=== PATIENT | male | born 1970 ===

== ENCOUNTER 2022-08-19 16:42 | Emergency (ER) | payer OTHER, MEDICAID, SELFPAY ==
[2022-08-19] VITALS (7 sets, daily range): BP systolic 138–144; BP diastolic 82–94; PULSE 56–76; RESP 14–24; TEMP 36.6; O2SAT 96–99; BMI 28.6
--- NOTE | 2022-08-19 17:10 | PC.NURSE ---
PIV unsuccessful x2
[2022-08-19] MEDS: ONDANSETRON 4 MG/2 ML INJ IV (17:45)
[2022-08-19] MEDS: MORPHINE 4 MG/ML INJ IV (17:45)
[2022-08-19 17:51] LABS: Add Manual Diff / Slide Review NO; Basophils Absolute Auto 100 /uL (0-100); Basophils Percent Auto 1.3 % (0-2); Eosinophils Absolute Auto 200 /uL (0-450); Eosinophils Percent Auto 2.1 % (2-4); Hematocrit 44.5 % (41-53); Hemoglobin 14.9 g/dL (13.5-17.5); Lymphocytes Absolute Auto 2800 /uL (1100-4500); Lymphocytes Percent Auto 24.7 % (25-40); Mean Corpuscular HGB Conc 33.4 % (30-36); Mean Corpuscular Hemoglobin 31.2 PG (26-34); Mean Corpuscular Volume 93.4 fL (80-100); Monocytes Absolute Auto 600 /uL (0-900); Monocytes Percent Auto 4.9 % (3-14); Neutrophils Absolute Auto 7700 /uL (1500-7000); Platelet Count 206 X10^3/uL (150-400); Red Blood Cell Count 4.77 X10^6/uL (4.5-5.9); Red Cell Distribution Width 14.3 % (11.6-14.8); White Blood Cell Count 11.5 X10^3/uL (4.5-11.0)
[2022-08-19 18:01] LABS: Alanine Aminotransferase 102 IU/L (<50); Albumin 4.9 g/dL (3.5-5.0); Albumin Globulin Ratio 1.1 (1.0-2.8); Alkaline Phosphatase 119 U/L (38-126); Aspartate Aminotransferase 87 IU/L (17-59); BUN Creatinine Ratio 14.2 (6-22); Bilirubin Total 0.9 mg/dL (0.2-1.3); Blood Urea Nitrogen 18 mg/dL (9-20); Calcium 9.6 mg/dL (8.4-10.2); Carbon Dioxide 31 mmol/L (22-32); Chloride 101 mmol/L (98-107); Estimated Glomerular Filt Rate > 60 mL/min (>60); Globulin 4.3 g/dL (1.7-4.1); Glucose 106 mg/dL (70-100); HEMOLYSIS < 15 (0-50); Lipase 262 U/L (23-300); Potassium 4.2 mmol/L (3.4-5.1); Sodium 139 mmol/L (137-145); Total Protein 9.2 g/dL (6.3-8.2)
--- NOTE | 2022-08-19 18:15 | ED.GENADULT ---
HPI - General Adult General Chief complaint: Abdominal Pain Stated complaint: Turned and something popped, Pain Time Seen by Provider: 08/19/22 17:57 Source: patient Mode of arrival: Wheelchair Limitations: no limitations History of Present Illness HPI narrative: Patient a known history of an umbilical hernia. He states he has had some issues with it in the past but is has been able to reduce it on its own. He states he has followed up with General surgery for this however he does not have a specific date for surgical repair. He states that he turned and he felt that something popped. He then had pain in his umbilical region. He felt like there are any was protruding any could not get it to reduce. At the time my evaluation he states the hernia has now PAC in. He states that his pain is greatly improved. His target some minor discomfort no vomiting. No change in bowel habits. Related Data Allergies Allergy/AdvReac Type Severity Reaction Status Date / Time Sulfa (Sulfonamide Allergy Hives Verified 08/19/22 16:54 Antibiotics) Review of Systems Constitutional Constitutional: Reports system reviewed and no additional complaints, except as documented Gastrointestinal Gastrointestinal: Reports system reviewed and no additional complaints, except as documented Genitourinary Genitourinary: Reports system reviewed and no additional complaints, except as documented Integumentary/Breasts Skin/Breast: Reports system reviewed and no additional complaints, except as documented Neurologic Neurologic: Reports system reviewed and no additional complaints, except as documented Patient History Social History Smoking Status: Current every day smoker Smoking Status: Current every day smoker alcohol intake frequency: 0-2 drinks per day Substance Use Type: marijuana Exam Initial Vital Signs Initial Vital Signs: Vital Signs Temperature 97.9 F 08/19/22 16:49 Pulse Rate 76 08/19/22 16:49 Respiratory Rate 22 08/19/22 16:49 Blood Pressure 139/94 H 08/19/22 16:49 Pulse Oximetry 99 08/19/22 16:49 Oxygen Delivery Method Room Air 08/19/22 16:49 HENMT Head: normal to inspection and normocephalic Resp Effort & Inspection: normal respiratory effort Cardio Rate: regular rate GI Inspection: normal to inspection and non-distended Other: Patient does have a deficit arrived his umbilical region but there is no hernia felt. Minimal tenderness to palpation Skin General: no rashes or lesions noted Neuro General: patient alert, patient awake and moves all extremities Course Orders Ordered: Discontinued Medications Morphine Sulfate (Morphine 4 Mg/Ml Inj) 4 mg IV NOW ONE Stop: 08/19/22 17:00 Last Admin: 08/19/22 17:45 Dose: 4 mg Documented By: NEELA Ondansetron HCl (Ondansetron 4 Mg/2 Ml Inj) 4 mg IV NOW PRN PRN Reason: Nausea And Vomiting Last Admin: 08/19/22 17:45 Dose: 4 mg Documented By: NEELA Vital Signs Vital signs: Vital Signs - 8 hr 08/19/22 16:49 Temperature 97.9 F Pulse Rate 76 Respiratory Rate 22 Blood Pressure 139/94 H Pulse Oximetry 99 Oxygen Delivery Method Room Air Medical Decision Making Lab Data Lab results reviewed: Yes I reviewed the patient's lab results. 08/19/22 17:40 08/19/22 17:40 Labs: Lab Results 08/19/22 08/19/22 Range/Units 17:40 17:40 WBC 11.5 H (4.5-11.0) X10^3/uL RBC 4.77 (4.5-5.9) X10^6/uL Hgb 14.9 (13.5-17.5) g/dL Hct 44.5 (41-53) % MCV 93.4 (80-100) fL MCH 31.2 (26-34) PG MCHC 33.4 (30-36) % RDW 14.3 (11.6-14.8) % Plt Count 206 (150-400) X10^3/uL Neut % (Auto) 67.0 (50-75) % Lymph % (Auto) 24.7 L (25-40) % [place] % (Auto) 4.9 (3-14) % Eos % (Auto) 2.1 (2-4) % Baso % (Auto) 1.3 (0-2) % Neut # (Auto) 7700 H (6558-3524) /uL Lymph # (Auto) 2800 (3820-9041) /uL [place] # (Auto) 600 (0-900) /uL Eos # (Auto) 200 (0-450) /uL Baso # (Auto) 100 (0-100) /uL Sodium 139 (137-145) mmol/L Potassium 4.2 (3.4-5.1) mmol/L Chloride 101 (98-107) mmol/L Carbon Dioxide 31 (22-32) mmol/L BUN 18 (9-20) mg/dL Creatinine 1.27 H (0.66-1.25) mg/dL Estimated GFR > 60 (>60) mL/min BUN/Creatinine Ratio 14.2 (6-22) Glucose 106 H (70-100) mg/dL Calcium 9.6 (8.4-10.2) mg/dL Total Bilirubin 0.9 (0.2-1.3) mg/dL AST 87 H (17-59) IU/L ALT 102 H (<50) IU/L Alkaline Phosphatase 119 (38-126) U/L Total Protein 9.2 H (6.3-8.2) g/dL Albumin 4.9 (3.5-5.0) g/dL Globulin 4.3 H (1.7-4.1) g/dL Albumin/Globulin Ratio 1.1 (1.0-2.8) Lipase 262 (23-300) U/L MDM Narrative Medical decision making narrative: Patient absolutely has an umbilical hernia but it appears to have reduced by the time I evaluated him. I suspect that this was the cause of his symptoms. I do recommend follow-up with General surgery to discuss surgical fixation of his hernia. Will discharge patient home. He was given strict return precautions. He expressed understanding and agreement. Discharge Plan Departure Patient Disposition: Home Clinical Impression: Hernia, umbilical Instructions: DI Umbilical Hernia-Child Activity Restrictions/Additional Instructions: I do recommend that you contact the general surgery department for a follow-up as you may need to have the umbilical hernia repaired. You can take Tylenol or ibuprofen for any discomfort. If the pain worsens or the hernia protrudes again and can not be reduced you do need to return to the emergency department for further evaluation. Referrals: Ellie Judd MD [Physician] - Stand Alone Forms: Patient Portal/API
== END 2022-08-19 18:27 | disposition home or self-care (01) ==
PROVIDERS: Emergency Medicine; Emergency Provider Emergency Medicine
DX: K42.9 Umbilical hernia without obstruction or gangrene (principal)
CPT/HCPCS: 36415; 80053; 83690; 85025; 96374; 96375; 99284; J2270; J2405